=== PATIENT | male | born 1995 | race Two or more races ===

== ENCOUNTER 2016-03-02 13:55 | Inpatient (IN) | payer SELFPAY ==
--- NOTE | 2016-03-02 15:42 | EDPHY ---
H & P Time Seen by Provider: 03/02/16 15:42 HPI/ROS: CHIEF COMPLAINT: Abdominal pain HISTORY OF PRESENT ILLNESS: Patient presents with about 1 week of abdominal pain worsening today. Located right lower quadrant without radiation. Symptoms moderate to severe. Associated with multiple episodes of vomiting and diarrhea last vomiting today. Worse with eating. REVIEW OF SYSTEMS: Eye: no change in vision ENT: no sore throat Cardiac: no chest pain or syncope Pulmonary: no cough or SOB Abdomen: HPI Musculoskeletal: no back pain Skin: no rash Neuro: no headache Constitutional: no fever : no urinary symptoms or testicular symptoms A comprehensive 10 point review of systems is otherwise negative aside from elements mentioned in the history of present illness. PAST MEDICAL HISTORY: Negative Social history: Cameroonian-speaking, translator/interpreter in the room with the patient General Appearance: Alert and conversant, cooperative. Eyes: No scleral icterus. ENT, Mouth: Normal mucous membranes. Respiratory: Normal respiratory effort, breath sounds equal, lungs are clear to auscultation. Cardiovascular: Regular rate and rhythm. Gastrointestinal: Right lower quadrant tenderness and guarding. Normal male and testicular exam without hernia. Neurological: Alert and oriented x3. Normally conversant. Face symmetric, normal movement and sensation in all extremities. Skin: Warm and dry, no rashes. Musculoskeletal: No peripheral edema and no joint swelling. Psychiatric: Not agitated. Emergency Department course/MDM: Fentanyl 100 mcg IV, Zofran 4 mg IV, normal saline [address] abdomen and pelvis discussed and consented to evaluate for appendicitis. Results discussed with the patient through translator/interpreter. Dr. Jose landon came to the emergency department to see and evaluate the patient. Requested IV antibiotics and will admit him for further treatment. Ertapenem 1 g IV. Smoking Status: Current every day smoker Constitutional: Initial Vital Signs Temperature (C) 37 C 03/02/16 14:01 Heart Rate 84 03/02/16 14:01 Respiratory Rate 16 03/02/16 14:01 Blood Pressure 133/80 H 03/02/16 14:01 O2 Sat (%) 97 03/02/16 14:01 O2 Delivery Mode Room Air Allergies/Adverse Reactions: No Known Allergies Allergy (Unverified 03/02/16 14:00) Home Medications: Medication Instructions Recorded NK [No Known Home Meds] 03/02/16 Medical Decision Making - Diagnostics Imaging: CT scan reviewed independently by myself shows inflammatory mass right lower quadrant, concerning for appendicitis with perforation within the last week and abscess. CT reviewed with Dr. Oscar radiologist. Differential Diagnosis: Differential diagnosis considered for abdominal pain including but not limited to appendicitis, cholecystitis, pancreatitis, gastritis and urinary tract infection. Consult/Admit Bed Type: [place] [id number] - Data Points Laboratory Results: Laboratory Results 03/02/16 15:50 03/02/16 15:50 03/02/16 03/02/16 15:58 15:50 WBC 8.04 10^3/uL (3.80-9.50) RBC 5.29 10^6/uL (4.40-6.38) Hgb 14.8 g/dL (13.7-17.5) POC Hgb 15.6 gm/dL (14.5-17.3) Hct 44.3 % (40.0-51.0) POC Hct 46 % (42.8-50.6) MCV 83.7 fL (81.5-99.8) MCH 28.0 pg (27.9-34.1) MCHC 33.4 g/dL (32.4-36.7) RDW 13.2 % (11.5-15.2) Plt Count 232 10^3/uL (150-400) MPV 11.1 fL (8.7-11.7) Neut % (Auto) 76.5 H % (39.3-74.2) Lymph % (Auto) 15.0 % (15.0-45.0) Giles % (Auto) 7.5 % (4.5-13.0) Eos % (Auto) 0.6 % (0.6-7.6) Baso % (Auto) 0.2 L % (0.3-1.7) Nucleat RBC Rel Count 0.0 % (0.0-0.2) Absolute Neuts (auto) 6.14 10^3/uL (1.70-6.50) Absolute Lymphs (auto) 1.21 10^3/uL (1.00-3.00) Absolute Monos (auto) 0.60 10^3/uL (0.30-0.80) Absolute Eos (auto) 0.05 10^3/uL (0.03-0.40) Absolute Basos (auto) 0.02 10^3/uL (0.02-0.10) Absolute Nucleated RBC 0.00 10^3/uL (0-0.01) Immature Gran % 0.2 % (0.0-1.1) Immature Gran # 0.02 10^3/uL (0.00-0.10) POC Sodium 143 mEq/L (134-144) Sodium 142 mEq/L (134-144) POC Potassium 3.7 mEq/L (3.3-5.0) Potassium 4.1 mEq/L (3.5-5.2) POC Chloride 102 mEq/L (96-108) Chloride 103 mEq/L (97-110) Carbon Dioxide 25 mEq/l (22-31) Anion Gap 14 mEq/L (8-16) POC BUN 9 mg/dL (7-23) BUN 9 mg/dL (7-23) Creatinine 0.9 mg/dL (0.7-1.3) POC Creatinine 0.9 mg/dL (0.8-1.5) Estimated GFR > 60 Glucose 103 H mg/dL (70-100) POC Glucose 106 H mg/dL (70-100) Calcium 8.9 mg/dL (8.5-10.4) Total Bilirubin 0.6 mg/dL (0.1-1.4) Conjugated Bilirubin 0.2 mg/dL (0.0-0.5) Unconjugated Bilirubin 0.4 mg/dL (0.0-1.1) AST 20 IU/L (17-59) ALT 44 IU/L (21-72) Alkaline Phosphatase 83 IU/L (38-126) Total Protein 7.6 g/dL (6.3-8.2) Albumin 4.2 g/dL (3.5-5.0) Lipase 88.0 IU/L (23-300) Medications Given: Discontinued Medications Fentanyl (Sublimaze) 100 mcg IVP EDNOW ONE Stop: 03/02/16 15:58 Last Admin: 03/02/16 16:20 Dose: 100 mcg Sodium Chloride (Ns) 1,000 mls @ 0 mls/hr IV ONCE ONE PRN Reason: Wide Open Stop: 03/02/16 15:58 Last Admin: 03/02/16 16:20 Dose: 1,000 mls Sodium Chloride (Ns) 1,000 mls @ 0 mls/hr IV ONCE ONE PRN Reason: Wide Open Stop: 03/02/16 15:58 Last Admin: 03/02/16 19:29 Dose: 1,000 mls Ertapenem 1 gm/ Sodium (Chloride) 100 mls @ 200 mls/hr IV EDNOW ONE PRN Reason: Protocol Stop: 03/02/16 18:48 Last Admin: 03/02/16 20:09 Dose: 100 mls Ketorolac Tromethamine (Toradol) 30 mg IVP EDNOW ONE Stop: 03/02/16 18:37 Last Admin: 03/02/16 19:30 Dose: 30 mg Ondansetron HCl (Zofran) 4 mg IVP EDNOW ONE Stop: 03/02/16 15:58 Last Admin: 03/02/16 16:35 Dose: 4 mg Point of Care Test Results: 03/02/16 15:58 POC Sodium 143 POC Potassium 3.7 POC Chloride 102 POC BUN 9 POC Creatinine 0.9 POC Glucose 106 H Departure - Departure Disposition: [facility] Acute Clinical Impression: Acute appendicitis Condition: Good
[2016-03-02] MEDS ORDERED: NS 1,000 ML IV ONE ×2 (15:57)
[2016-03-02] MEDS ORDERED: fentaNYL 100 MCG/2 ML INJ IVP ONE (15:57)
[2016-03-02] MEDS ORDERED: ONDANSETRON 4 MG/2 ML VIAL IVP ONE (15:57)
[2016-03-02 16:08] LABS: % IMMATURE GRANULYOCYTES 0.2 % (0.0-1.1); ABSOLUTE IMMATURE GRANULOCYTES 0.02 10^3/uL (0.00-0.10); ADD DIFF? NO; ADD MORPH? NO; ADD SCAN? NO; ATYPICAL LYMPHOCYTE FLAG 10 (0-99); FRAGMENT RBC FLAG 0 (0-99); HEMATOCRIT 44.3 % (40.0-51.0); HEMOGLOBIN 14.8 g/dL (13.7-17.5); LEFT SHIFT FLG 0 (0-99); LIPEMIA HEMOLYSIS FLAG 80 (0-99); MEAN CELL HEMOGLOBIN CONCENTR. 33.4 g/dL (32.4-36.7); MEAN CELL VOLUME 83.7 fL (81.5-99.8); MEAN PLATELET VOLUME 11.1 fL (8.7-11.7); PLATELET CLUMPS FLAG 0 (0-99); PLATELET COUNT 232 10^3/uL (150-400); RED BLOOD CELL COUNT 5.29 10^6/uL (4.40-6.38); RED CELL DISTRIBUTION WIDTH 13.2 % (11.5-15.2)
[2016-03-02 16:34] LABS: ALANINE AMINOTRANSFERASE 44 IU/L (21-72); ALBUMIN 4.2 g/dL (3.5-5.0); ALKALINE PHOSPHATASE 83 IU/L (38-126); ANION GAP 14 mEq/L (8-16); ASPARTATE AMINOTRANSFERASE 20 IU/L (17-59); BILIRUBIN,TOTAL 0.6 mg/dL (0.1-1.4); CALCIUM 8.9 mg/dL (8.5-10.4); CARBON DIOXIDE 25 mEq/l (22-31); CHLORIDE 103 mEq/L (97-110); GLUCOSE 103 mg/dL (70-100); POTASSIUM 4.1 mEq/L (3.5-5.2); SODIUM 142 mEq/L (134-144)
[2016-03-02] MEDS ORDERED: IOPAMIDOL (ISOVUE-300) 100 ML BTL IV ONE (16:45)
[2016-03-02 17:13] LABS: BILIRUBIN-CONJUGATED 0.2 mg/dL (0.0-0.5); BILIRUBIN-UNCONJUGATED 0.4 mg/dL (0.0-1.1); CREATININE 0.9 mg/dL (0.7-1.3); GLOMERULAR FILTRATION RATE > 60; TOTAL PROTEIN 7.6 g/dL (6.3-8.2)
--- NOTE | 2016-03-02 17:41 | CT ---
CT Scan of the Abdomen and Pelvis (With Contrast) at 1710 hours History: Right lower quadrant pain for one week, nausea, vomiting, diarrhea Technique: Axial computed tomographic images of the abdomen and pelvis were obtained with the unevent ful intravenous administration of 95 mL Isovue-300 contrast. No oral or rectal contrast which limits the study. Dose reduction techniques were utilized. CT Abdomen Findings: Lung bases: Normal. Liver: Normal. Biliary system: No obstruction. Spleen: Normal. Pancreas: Normal. Adrenals: Normal. Kidneys: No obstruction or solid masses.. Abdominal Aorta: No aneurysm. CT pelvis findings: Diffuse inflammatory process involving the terminal ileum, cecum, and appendix ex tending for at least 10 cm in length and 6 x 7 cm in transverse dimension with circumferential wall t hickening of the terminal ileum, cecum, encasement of the appendix into this process with pericolonic inflammatory changes and associated lymph nodes. No pneumoperitoneum or drainable abscess. No eviden ce of bowel obstruction. No hepatic abscess. Impression: 1. Diffuse inflammatory process involving the terminal ileum, cecum and appendix measuring 10 x 6 x 7 cm with inflamed mesentery, adjacent lymph nodes, but no evidence of drainable abscesses or pneumope ritoneum. Differential diagnosis includes Crohn's disease, infectious/inflammatory ileocolitis, sever e ruptured appendicitis with associated inflammatory changes of the ileum and cecum, or typhlitis. 2. Recommend surgery consult. Findings and recommendations discussed with Emergency Department physician, Dr. Jake Vaca at [address], today. Final report concurs with initial preliminary interpretation.
[2016-03-02] MEDS ORDERED: ERTAPENEM 1 GM in NS 100 ML IV ONE (18:19)
[2016-03-02] MEDS ORDERED: KETOROLAC 30 MG/1 ML SDV IVP ONE (18:36)
[2016-03-02] MEDS: D5W LR 1,000 ML IV SCH (20:04)
[2016-03-02] MEDS: OXYCODONE/APAP 5/325 TAB PO PRN (20:38)
[2016-03-03] MEDS: PIPERACILLIN/TAZO 3.375 GM/DEX 50 ML IV SCH ×5 (01:21→23:31)
[2016-03-03] MEDS: KETOROLAC 15 MG/1 ML SDV IVP SCH ×5 (01:21→23:31)
[2016-03-03] MEDS: D5W LR 1,000 ML IV SCH ×3 (04:33→17:48)
--- NOTE | 2016-03-03 05:03 | GCON ---
[f rep st] CONSULTATION DATE OF CONSULTATION: 03/02/2016 REFERRING PHYSICIAN: Jake Vaca MD REASON FOR EVALUATION: Right lower quadrant pain. HISTORY OF PRESENT ILLNESS: 19-year-old male with a 3-month history of progressive waxing and waning right lower quadrant abdominal pain. Over the last week his pain has worsened to the point he has been unable to tolerate this with [id number]-[id number] analgesics. He presented to the emergency room for further workup this evening. He has had intermittent chills at home without fevers. Bowel movement intermittently irregular with some diarrhea in the last week. With no antecedent history of diarrhea or constipation. No history of blood per rectum. No prior history of GI complaints. PAST MEDICAL HISTORY: None. PAST SURGICAL HISTORY: None. MEDICATIONS: None. ALLERGIES: No known drug allergies. SOCIAL: Occasional alcohol. No tobacco. He is a cook at [employer]. FAMILY HISTORY: Unremarkable. REVIEW OF SYSTEMS: Notable for above GI complaints only, otherwise negative 10 point review. PHYSICAL EXAMINATION: VITAL SIGNS: Temperature 36.9, blood pressure 130/80, pulse 66, respirations 16. GENERAL APPEARANCE: The patient is alert, appropriate, moving slowly. HEENT: Anicteric. NECK: No cervical lymphadenopathy. HEART: Regular. LUNGS: Clear. ABDOMEN: Distended, soft. Notable right lower quadrant tenderness without rebound or guarding. No abdominal erythema. No hernias. EXTREMITIES: Unremarkable. NEUROLOGIC: Unremarkable. LABORATORY DATA: White count 8, hemoglobin 16, platelets 230. Electrolytes within reference range. IMAGING: CT showed a large right lower quadrant phlegmon encasing the distal terminal ilium, as well as proximal cecum. Enlarged appendix with appendicolith , and no drainable fluid collections. IMPRESSION: Chronic perforated appendicitis with large phlegmon. PLAN: Patient will be admitted for pain control, intravenous antibiotic administration. If continued resolution, may not need further surgical intervention. If symptoms fail to progress, ileocecectomy will likely be warranted. He currently has no drainable fluid collections. This is consistent with his chronicity of symptoms. /[id number]/MODL MTDD
[2016-03-03] MEDS ORDERED: FLU VACC QS 2016-17(3-64YR)/PF 0.5 ML SYR (FLUARIX QUAD) IM ONE (06:45)
[2016-03-03] MEDS ORDERED: PNEUMOCOCCAL 0.5ML VACCINE VIAL IM ONE (06:45)
[2016-03-03] MEDS: OXYCODONE/APAP 5/325 TAB PO PRN ×2 (08:58→17:53)
--- NOTE | 2016-03-03 15:48 | SOAPPROG ---
SOAP Progress Note Assessment/Plan: Assessment: Patient feeling well today. Having less pain, increased appetite, no nausea/ vomiting. Tolerating diet. BP 110/70, HR 50s, O2 96%, afebrile. A&O x 3, no new labs today, Abd: softer and less tender compared to yesterday. A/P: Chronic perforated appendix- continue medical management, social worker aide to see, switch to oral antibiotics at discharge, tentatively home in am. 03/03/16 15:51 Objective: Vital Signs Temp Pulse Resp BP Pulse Ox 36.8 C 55 L 16 113/74 96 03/03/16 07:40 03/03/16 07:40 03/03/16 07:40 03/03/16 07:40 03/03/16 07:40 03/02/16 03/03/16 03/04/16 05:59 05:59 05:59 Intake Total 2250 1600 Output Total 0 Balance 2250 1600 ICD10 Worksheet Patient Problems: Problems Problem Status Diagnosed Acute appendicitis Acute
[2016-03-03] MEDS: ONDANSETRON 4 MG/2 ML VIAL IVP PRN (23:31)
[2016-03-04] MEDS: ONDANSETRON 4 MG/2 ML VIAL IVP PRN ×3 (03:30→12:54)
[2016-03-04] MEDS: HYDROmorphONE/DILAUDID 1 MG/ML SYR IVP PRN ×3 (04:24→21:24)
[2016-03-04] MEDS: KETOROLAC 15 MG/1 ML SDV IVP SCH ×3 (05:38→17:48)
[2016-03-04] MEDS: PIPERACILLIN/TAZO 3.375 GM/DEX 50 ML IV SCH ×3 (05:38→17:49)
[2016-03-04] MEDS: D5W LR 1,000 ML IV SCH ×3 (08:35→21:24)
--- NOTE | 2016-03-04 09:59 | SOAPPROG ---
SOAP Progress Note Assessment/Plan: Assessment: Patient with episode of vomiting this morning. Complaints of more pain in RLQ. decreased appetite. BP 130/96, HR 88s, O2 97%, afebrile. A&O x 3, no new labs today. Resting comfortably in bed. Abd: distended, tenderness RUQ/ RLQ. A/P: Chronic perforated appendix- continue medical management- supportive care- pain meds/ anti-emetics, check CBC this morning, switch to oral antibiotics at discharge- keep patient again today. 03/04/16 09:59 03/04/16 09:59 Objective: Vital Signs Temp Pulse Resp BP Pulse Ox 36.6 C 88 14 131/96 H 97 03/04/16 08:00 03/04/16 08:00 03/04/16 08:00 03/04/16 08:00 03/04/16 08:00 03/03/16 03/04/16 03/05/16 05:59 05:59 05:59 Intake Total 2250 3300 Output Total 0 300 Balance 2250 3300 -300 ICD10 Worksheet Patient Problems: Problems Problem Status Diagnosed Acute appendicitis Acute
[2016-03-04 10:36] LABS: % IMMATURE GRANULYOCYTES 0.2 % (0.0-1.1); ABSOLUTE IMMATURE GRANULOCYTES 0.02 10^3/uL (0.00-0.10); ADD DIFF? NO; ADD MORPH? NO; ADD SCAN? NO; ATYPICAL LYMPHOCYTE FLAG 0 (0-99); FRAGMENT RBC FLAG 0 (0-99); HEMATOCRIT 43.9 % (40.0-51.0); HEMOGLOBIN 14.5 g/dL (13.7-17.5); LEFT SHIFT FLG 0 (0-99); LIPEMIA HEMOLYSIS FLAG 80 (0-99); MEAN CELL HEMOGLOBIN 28.1 pg (27.9-34.1); MEAN CELL VOLUME 85.1 fL (81.5-99.8); PLATELET CLUMPS FLAG 0 (0-99); PLATELET COUNT 205 10^3/uL (150-400); RED BLOOD CELL COUNT 5.16 10^6/uL (4.40-6.38); RED CELL DISTRIBUTION WIDTH 13.2 % (11.5-15.2)
[2016-03-04] MEDS: BISACODYL 10 MG SUPP PR PRN (13:19)
[2016-03-04] MEDS: PROMETHAZINE HCL 25 MG/ML INJ IV PRN ×2 (15:50→21:24)
[2016-03-05] MEDS: PIPERACILLIN/TAZO 3.375 GM/DEX 50 ML IV SCH ×5 (00:58→23:33)
[2016-03-05] MEDS: KETOROLAC 15 MG/1 ML SDV IVP SCH ×5 (00:58→23:33)
[2016-03-05] MEDS: D5W LR 1,000 ML IV SCH ×3 (08:40→21:05)
[2016-03-05] MEDS: ONDANSETRON 4 MG/2 ML VIAL IVP PRN ×2 (08:40→16:59)
[2016-03-05] MEDS: HYDROmorphONE/DILAUDID 1 MG/ML SYR IVP PRN (08:41)
[2016-03-05] MEDS: BISACODYL 10 MG SUPP PR PRN (08:45)
--- NOTE | 2016-03-05 12:58 | SOAPPROG ---
SOAP Progress Note Assessment/Plan: Assessment:emesis yesterday and earlier today. feeling better at present. minimal pain. no current nausea. has had liquidy BM. afebrile. comfortable. abd dist, soft, min tender. chronic perforated appendicitis. cont supportive care, zosyn. if unable to tolerate po, may need to consider resection. discussed in detail with patient in kazakh. all questions answered. care plan reviewed with nursing staff at bedside. Plan: 03/05/16 12:56 Objective: Vital Signs Temp Pulse Resp BP Pulse Ox 36.9 C 70 24 H 111/83 H 95 03/05/16 08:00 03/05/16 08:00 03/05/16 08:00 03/05/16 08:00 03/05/16 08:00 03/04/16 03/05/16 03/06/16 05:59 05:59 05:59 Intake Total 1551 Balance 1551 ICD10 Worksheet Patient Problems: Problems Problem Status Diagnosed Acute appendicitis Acute
[2016-03-05] MEDS: FAMOTIDINE 20 MG TAB PO SCH ×2 (14:56→21:05)
[2016-03-05] MEDS: OXYCODONE/APAP 5/325 TAB PO PRN ×2 (17:04→21:05)
[2016-03-05] MEDS: PROMETHAZINE HCL 25 MG/ML INJ IV PRN (21:05)
[2016-03-06] MEDS: D5W LR 1,000 ML IV SCH ×2 (05:36→15:16)
[2016-03-06] MEDS: KETOROLAC 15 MG/1 ML SDV IVP SCH ×4 (05:36→23:54)
[2016-03-06] MEDS: PIPERACILLIN/TAZO 3.375 GM/DEX 50 ML IV SCH ×4 (05:36→23:54)
[2016-03-06] MEDS: FAMOTIDINE 20 MG TAB PO SCH ×2 (08:35→19:48)
--- NOTE | 2016-03-06 09:25 | SOAPPROG ---
SOAP Progress Note Assessment/Plan: Assessment:good night. no further nausea. feels hungry today. multiple liquidy bm overnight. no pain. afebrile. comfortable. abd markedly less dist , soft, non tender. chronic perforated appendicitis. cont supportive care, zosyn. will try to advance diet today. if unable to tolerate po, may need to consider resection. discussed in detail with patient in italian - metal sander and finisher present at bedside. all questions answered. care plan reviewed with nursing staff as well Plan: 03/05/16 12:56 03/06/16 09:23 Objective: Vital Signs Temp Pulse Resp BP Pulse Ox 36.4 C 59 L 14 99/67 L 95 03/06/16 08:06 03/06/16 08:06 03/06/16 08:06 03/06/16 08:06 03/06/16 08:06 03/05/16 03/06/16 03/07/16 05:59 05:59 05:59 Intake Total 1551 3449 Balance 1551 3440 ICD10 Worksheet Patient Problems: Problems Problem Status Diagnosed Acute appendicitis Acute
[2016-03-06] MEDS: OXYCODONE/APAP 5/325 TAB PO PRN (17:02)
--- NOTE | 2016-03-06 18:33 | DX ---
Abdomen 2 views at 1803 hours History: Chronic perforated appendicitis, persistent pain, nausea. Comparison: CT March 02, 2016 Findings: Nonspecific bowel gas pattern with air scattered throughout the colon. No definite small honorio wel distention or obstruction. No pneumoperitoneum. Lung bases are clear. Impression: No bowel obstruction or pneumoperitoneum.
[2016-03-06] MEDS ORDERED: MIDAZOLAM 2 MG/2 ML VIAL ONE (20:22)
[2016-03-06] MEDS ORDERED: REMIFENTANIL HCL 1 MG VIAL ONE (20:35)
[2016-03-06] MEDS ORDERED: fentaNYL 100 MCG/2 ML INJ ONE ×3 (20:35→22:47)
[2016-03-06] MEDS ORDERED: PROPOFOL/EMULSION 500 MG/50 ML BOTTLE IV ONE (20:35)
[2016-03-06] MEDS ORDERED: DEXAMETHASONE 4 MG/ML VIAL ONE (20:38)
[2016-03-06] MEDS ORDERED: KETOROLAC 30 MG/1 ML SDV ONE (20:38)
[2016-03-06] MEDS ORDERED: ROCURONIUM 50 MG/5 ML VIAL ONE (20:39)
[2016-03-06] MEDS ORDERED: LIDOCAINE 2% 5 ML SDV ONE (20:47)
[2016-03-06] MEDS ORDERED: BUPIVACAINE/EPI 0.5% 30 ML SDV ONE (20:55)
[2016-03-06] MEDS ORDERED: PROPOFOL 200 MG/20 ML VIAL ONE (22:04)
[2016-03-06] MEDS ORDERED: MEPERIDINE 25 MG/ML SYR ONE (22:31)
[2016-03-06] MEDS ORDERED: HYDROmorphONE/DILAUDID 1 MG/ML SYR ONE (22:52)
--- NOTE | 2016-03-06 23:32 | POSTOPPROG ---
Post Op Note Date of Operation: 03/06/16 Surgeon: Trevor Stephen Circular Knife Cutter Machine: Dr Yuri Garcia Anesthesia: GET(General Endotracheal) Pre-op Diagnosis: ileocecal obstruction Post-op Diagnosis: perforated appendicitis Indication: obstruction Procedure: lap to open ileocectomy Inf/Abcess present in the surg proc area at time of surgery?: Yes Depth: Organ Space EBL: 50-100 Complications: none Specimen(s): ileocectomy
--- NOTE | 2016-03-07 02:02 | GOP ---
[f rep st] OPERATIVE REPORT DATE OF OPERATION: SURGEON: Trevor Stephen MD SUPERVISOR [employer]: Adan Garcia MD. PREOPERATIVE DIAGNOSIS: Obstructions secondary to appendicitis, perforated. POSTOPERATIVE DIAGNOSIS: Obstructions secondary to appendicitis, perforated. PROCEDURE PERFORMED: Laparoscopic to open ileocecectomy. FINDINGS: Chronically inflamed ileocecal junction with obstruction SPECIMENS: Ileocecectomy to permanent pathology. ESTIMATED BLOOD LOSS: 50 mL. INDICATIONS: This 20-year-old gentleman presents to the hospital with 3 months of worsening abdominal pain, new signs of obstruction. Patient was treated conservatively with IV antibiotics, bowel rest. Continued to have obstructive symptoms including vomiting and occasional diarrhea. Patient was subjected to additional imaging test before deciding to take him to the operating room for exploration. DESCRIPTION OF PROCEDURE: Patient was brought to the operating room. After induction of endotracheal anesthesia, in the supine position, his abdomen was prepped with chlorhexidine and draped sterilely. Time-out procedure was then performed according to institutional standards. Local anesthetic was infused in skin and subcutaneous tissue of the abdominal wall and open trocar placement was performed in the supraumbilical region. Findings were of an infected phlegmon in the right lower quadrant without active purulence. Initial attempts at laparoscopic dissection were found not to be effective secondary to the amount of inflammation and dense inflammatory tissue surrounding the appendix. It was therefore decided to perform an open procedure and conversion was performed. Incision was made from just above the umbilicus to lower midline , deepened with electrocautery, opened to the extent of the incision. The terminal ileum was identified, transected proximally, and the colon was identified in the white line of Toldt. Peritoneal reflection on the right side was identified and mobilized in the field of dissection. The ureter was identified and kept out of the field of dissection. The dense inflammatory tissue was the last area that was identified, and dissection of the mesentery was performed with ligature dissector and suture ligature. After identifying the appendiceal stump, this was carefully dissected out ensuring not to damage the ureter or the retroperitoneal tissues. The specimen was passed off. Hemostasis was assured. The anastomosis was performed using a [id number]-pf-azod functional end-to-end anastomosis using a YESENIA 75 stapler to divide the bowel proximally and distally and then create the anastomosis through separate enterotomies. The enterotomy created was then reapproximated using 3-0 Prolene suture in 2 layer fashion. [place], instruments, and sponges were verified to be correct. The abdomen was closed using a 0 PDS and the skin was reapproximated using cayetano. Dressing was applied. The patient was awakened, extubated, and taken to the recovery room in stable condition. No immediate complications. FLUID GIVEN: 1.2 L crystalloid. COMPLICATIONS: There were no complications. /[id number]/MODL MTDD
[2016-03-07] MEDS: D5W LR 1,000 ML IV SCH ×2 (03:43→23:10)
[2016-03-07] MEDS: KETOROLAC 15 MG/1 ML SDV IVP SCH ×4 (05:54→23:11)
[2016-03-07] MEDS: PIPERACILLIN/TAZO 3.375 GM/DEX 50 ML IV SCH ×4 (05:55→23:10)
--- NOTE | 2016-03-07 08:13 | SOAPPROG ---
SOAP Progress Note Assessment/Plan: Assessment/Plan: POD#1 s/p ileocectomy for likely chronic perforated appendicitis with obstruction Pain moderaltely well controlled OOB to BR Incision with serosang strikethrough RRR CTA Abd appropriately tender. softly distended, incision min s/s drainage cayetano intact No edema Expected POD#1 pain and anorexia Advance to clears 2-4 mg Morphine Continue Zosyn for an additional 24-48 hr to treat appendicitis labs tomorrow am Encourage IS and ambulation 03/07/16 08:09 Objective: Vital Signs Temp Pulse Resp BP Pulse Ox 36.9 C 77 12 122/73 H 99 03/07/16 04:00 03/07/16 04:00 03/07/16 04:00 03/07/16 04:00 03/07/16 04:00 03/06/16 03/07/16 03/08/16 05:59 05:59 05:59 Intake Total 3449 2195 Output Total 725 Balance 3447 6152 ICD10 Worksheet Patient Problems: Problems Problem Status Diagnosed Acute appendicitis Acute
[2016-03-07] MEDS: FAMOTIDINE 20 MG TAB PO SCH ×2 (08:33→20:10)
[2016-03-08] MEDS: PIPERACILLIN/TAZO 3.375 GM/DEX 50 ML IV SCH ×4 (05:22→23:57)
[2016-03-08 05:43] LABS: HEMATOCRIT 39.7 % (40.0-51.0); MEAN CELL HEMOGLOBIN 27.3 pg (27.9-34.1); MEAN CELL HEMOGLOBIN CONCENTR. 32.7 g/dL (32.4-36.7); MEAN CELL VOLUME 83.2 fL (81.5-99.8); RED BLOOD CELL COUNT 4.77 10^6/uL (4.40-6.38); RED CELL DISTRIBUTION WIDTH 13.5 % (11.5-15.2)
[2016-03-08 06:20] LABS: ANION GAP 7 mEq/L (8-16); CALCIUM 8.6 mg/dL (8.5-10.4); CARBON DIOXIDE 27 mEq/l (22-31); CHLORIDE 105 mEq/L (97-110); CREATININE 0.8 mg/dL (0.7-1.3); GLOMERULAR FILTRATION RATE > 60; GLUCOSE 116 mg/dL (70-100); POTASSIUM 3.7 mEq/L (3.5-5.2); SODIUM 139 mEq/L (134-144)
[2016-03-08] MEDS ORDERED: KETOROLAC 15 MG/1 ML SDV IVP PRN (09:23)
[2016-03-08] MEDS: OXYCODONE/APAP 5/325 TAB PO PRN ×3 (09:43→20:48)
[2016-03-08] MEDS: FAMOTIDINE 20 MG TAB PO SCH ×2 (09:43→20:47)
[2016-03-09] MEDS: OXYCODONE/APAP 5/325 TAB PO PRN (08:29)
[2016-03-09] MEDS: FAMOTIDINE 20 MG TAB PO SCH (08:29)
[2016-03-09 08:35] VITALS: BP 126/73; PULSE 94; RESP 16; TEMP 98.8; O2SAT 93
--- NOTE | 2016-03-10 17:11 | GDS ---
[f rep st] DISCHARGE SUMMARY HISTORY OF PRESENT ILLNESS: This is a 20-year-old gentleman who presents with chronic right lower qu adrant abdominal pain and symptoms of obstruction. CT scan on admission showed a phlegmon in the abd omen, consistent with either inflammatory bowel disease, infectious, neoplastic or appendicular infor mation after chronic rupture. The patient was brought into the hospital for evaluation. PRINCIPAL DIAGNOSIS: Abdominal pain. Right lower quadrant inflammation, likely perforated appendici tis, chronic. HOSPITAL COURSE: The patient was treated with antibiotics, bowel rest, and continued to have increas ing obstructive symptoms. He was taken to the operating room on hospital day #3. He underwent open ileocecectomy with removal of the terminal ilium and a portion of the right colon. [id number] func tional end-to-end anastomosis was performed without difficulty. The patient was able to be advanced in his diet and activity, after he recovered from surgery, initially on intravenous analgesics. He w as transitioned to oral. The patient was discharged with no complications when in the hospital, with cayetano intact. He will follow up in the office in 5 days for suture removal. All questions were a ddressed prior to his discharge. Final pathology is still pending. The patient understands his diag nosis and prognosis. He will follow up accordingly. /[id number]/MODL
== END 2016-03-09 13:19 | disposition home or self-care (01) | DRG 331 ==
LOC: INTOOBSV 18:19 → F3E 19:45 → OBSVTOIN 03-04 13:44 → MERGE 03-04 13:44 → EDBD 03-04 13:44
PROVIDERS: ADMIT Surgery; ATTEND Surgery
PROC: 0DJD4ZZ Inspection of Lower Intestinal Tract, Percutaneous Endoscopic Approach (ICD-10-PCS; principal; 2016-03-06 20:41)
PROC: 0DTH0ZZ Resection of Cecum, Open Approach (ICD-10-PCS; principal; 2016-03-06 20:41)
DX: K35.3 Acute appendicitis with localized peritonitis (principal); F17.210 Nicotine dependence, cigarettes, uncomplicated; Z53.31 Laparoscopic surgical procedure converted to open procedure; Z23 Encounter for immunization
CPT/HCPCS: 82947-QW; 96374; G0008; G0009; G0378; J1100; J1170; J1335; J1885; J2250; J2405; J2543; J2550; J2704; J3010; Q9967

== ENCOUNTER 2016-07-12 17:04 | Emergency (ER) | payer SELFPAY ==
[2016-07-12 17:11] VITALS: BP 124/84; PULSE 81; RESP 16; TEMP 97.7; O2SAT 96
--- NOTE | 2016-07-12 17:27 | EDPHY ---
HPI/HX/ROS/PE/MDM Narrative: CHIEF COMPLAINT: Abdominal "lump" HPI: This patient is a 20 year old male who presents to the Emergency Department complaining that he first noticed a lump just below his umbilicus this morning. He had an appendectomy in February and reports that his lump is localized just over the surgical incision. He also reports pain to the site of the abnormality. He denies any additional complaints; no changes to his bowel movement, nausea, vomiting, fever or chills. He has not identified any alleviating or exacerbating factors for his pain. He denies any additional pertinent medical history. REVIEW OF SYSTEMS: Aside from elements discussed in the HPI, a comprehensive 10-point review of systems was reviewed and is negative. PMH: Appendectomy 02/2016. SOCIAL HISTORY: Bruneian speaker. PHYSICAL EXAM: General:Patient is alert, in no acute distress. ENT:Eyes are normal to inspection. ENT inspection normal. Neck: Normal inspection. Full range of motion. Respiratory:No respiratory distress. Breath sounds normal bilaterally. Cardiovascular: Regular rate and rhythm. Strong peripheral pulses. Normal cap refill. Abdomen:The abdomen is nontender to palpation. There are no peritoneal signs. There are normal bowel sounds. There is a small tender indurated area just inferior to umbilicus; no drainage or erythema. Back: Normal to inspection. No tenderness to palpation. Skin: Normal color. No rash. Warm and dry. Extremities: Normal appearance. Full range of motion. Neuro: Oriented x3. Normal motor function. Normal sensory function. ED Course: Normally healthy 20-year-old male presents with a small area of induration and tenderness localized just below his umbilicus. This apparently presented acutely this morning just over the surgical incision from his appendectomy in February. The procedure was performed by Dr. Trevor Stephen. Will consult with the on-call surgeon with his group. 1801: Consultation with Dr. Adan Garcia, on-call general surgeon, who will see the patient in the office tomorrow. He does not recommend any additional testing at this time. I discussed this plan with the patient who is in agreement and will be discharged home in good condition pending follow-up. General Time Seen by Provider: 07/12/16 17:26 Initial Vital Signs: Initial Vital Signs Temperature (C) 36.5 C 07/12/16 17:09 Heart Rate 81 07/12/16 17:09 Respiratory Rate 16 07/12/16 17:09 Blood Pressure 124/84 H 07/12/16 17:09 O2 Sat (%) 96 07/12/16 17:09 O2 Delivery Mode Room Air Allergies/Adverse Reactions: No Known Allergies Allergy (Verified 12/21/15 16:28) Home Medications: Medication Instructions Recorded Hydrocodone/APAP 5/325 [Magness 1 tab PO Q6H PRN #8 tab 12/14/15 5/325 (*)] Cephalexin [Keflex] 500 mg PO QID 5 Days 12/21/15 oxyCODONE/APAP 5/325 [Percocet 2 tab PO Q4HRS PRN #60 tab 03/09/16 5/325 (*)] Departure - Departure Disposition: Home, Routine, Self-Care Clinical Impression: Abdominal wall pain Condition: Good Instructions: Abdominal Pain (ED) Additional Instructions: 1. Dr. Garcia will see you in his office tomorrow morning. Call first thing in the morning to confirm the time of your appointment. 2. Return to the Emergency Department if you experience increased swelling, worsening pain, nausea or vomiting, diarrhea, or other serious concerns. Referrals: Adan Garcia MD [Medical Doctor] - As per Instructions Print Language: Bruneian Report Scribed for: Armen Ojeda Report Scribed by: Alberta Silva Date of Report: 07/12/16 Time of Report: 17:27 Physician Review and Approval Statement: Portions of this note were transcribed by an ED scribe. I personally performed the history, physical exam, and medical decision making; and confirm the accuracy of the information in the transcribed note.
== END 2016-07-12 18:30 | disposition home or self-care (01) ==
DX: R10.9 Unspecified abdominal pain (principal); G89.18 Other acute postprocedural pain; Z90.49 Acquired absence of other specified parts of digestive tract